=== PATIENT | female | born 1955 | race Caucasian/White ===

== ENCOUNTER 2018-08-03 13:03 | Emergency (ER) | payer MEDICARE, MEDICAID ==
[~2018-08-03] VITALS: Ht 152.4 cm; Wt 66.0 kg
[2018-08-03 13:21] VITALS: BP 156/93
[2018-08-03] MEDS ORDERED: DULA1.5P SQ (13:39)
[2018-08-03] MEDS ORDERED: [UNRECOGNIZED DRUG - CODE] (13:39)
== END 2018-08-03 14:05 | disposition home or self-care (01) ==
LOC: ER 13:04
DX: E11.9 Type 2 diabetes mellitus without complications (principal); Z76.0 Encounter for issue of repeat prescription; I10 Essential (primary) hypertension; J44.9 Chronic obstructive pulmonary disease, unspecified; F17.200 Nicotine dependence, unspecified, uncomplicated; F12.90 Cannabis use, unspecified, uncomplicated
CPT/HCPCS: 82948; 99283